=== PATIENT | male | born 1930 | race Native Hawaiian/Other Pacific Islander ===

== ENCOUNTER 2017-08-21 10:17 | Emergency (ER) | payer MEDICARE ==
[2017-08-21] MEDS ORDERED: Tetanus/Diphtheria Toxoids 0.5 ml Syringe IM ONE ×2 (11:02→11:12)
--- NOTE | 2017-08-21 11:24 | C.PDOC ---
History Of Present Illness 87 yr old male presents to the ER s/p slip and fall. Patient states he was on [place] way to [place] when he slipped on ice, hitting the back of his head. Patient reports of a laceration to the back of head, associated with mild headache to the area. Patient denies LOC, visual changes, nausea, vomiting, neck pain, dizziness, sensory changes, extremity weakness. Patient is not UTD on Tetanus. - HPI Time Seen by Provider: 08/21/17 10:46 Chief Complaint (Nursing): Trauma History Per: Patient History/Exam Limitations: no limitations Onset/Duration Of Symptoms: Sudden Onset ([employer]) Severity: Moderate Past Medical History Reviewed: Historical Data, Nursing Documentation, Vital Signs Vital Signs: Last Vital Signs Temp 97.9 F 08/21/17 12:31 Pulse 90 08/21/17 12:31 Resp 18 08/21/17 12:31 BP 110/64 08/21/17 12:31 Pulse Ox 99 08/27/17 15:00 - Medical History PMH: Hypercholesterolemia - [facility] Procedures CATARAC PHACOEMULS/ASPIR (06/21/13) INSERT LENS AT CATAR EXT (06/21/13) Family History: States: No Known Family Hx - Social History Hx Alcohol Use: No Hx Substance Use: No - Immunization History Hx Tetanus Toxoid Vaccination: No Hx Influenza Vaccination: No Hx Pneumococcal Vaccination: No Review Of Systems Except As Marked, All Systems Reviewed And Found Negative. Eyes: Negative for: Vision Change Gastrointestinal: Negative for: Nausea, Vomiting, Abdominal Pain Musculoskeletal: Negative for: Neck Pain Skin: Positive for: Other (Laceration to the back of head with mild headache to the area) Neurological: Positive for: Headache. Negative for: Weakness, Numbness, Dizziness Physical Exam - Physical Exam Appears: Well, Non-toxic, No Acute Distress Skin: Warm, Dry, No Rash Head: Normacephalic, Other ((+) two approx 1.5cm lacerations in paralelle oriantation - occipital scalp) Eye(s): bilateral: Normal Inspection, PERRL, EOMI Oral Mucosa: Moist Neck: Normal, Normal ROM, No Midline Cervical Tenderness, No Paracervical Tenderness, No Step Off Deformity, Supple Cardiovascular: Rhythm Regular Respiratory: Normal Breath Sounds, No Rales, No Rhonchi, No Wheezing Gastrointestinal/Abdominal: Normal Exam, Bowel Sounds, Soft, No Tenderness Back: Normal Inspection, No CVA Tenderness Extremity: Normal ROM, No Swelling Extremity: Bilateral: Atraumatic, Normal Color And Temperature, Normal ROM Neurological/Psych: Oriented x3, Normal Speech, Normal Cognition, Normal Cranial Nerves, No Cerebellar Signs, Normal Motor, Normal Sensation Gait: Steady ED Course And Treatment O2 Sat by Pulse Oximetry: 99 (RA) Pulse Ox Interpretation: Normal - CT Scan/US CT - Head Other Rad Studies (CT/US): Read By Radiologist, Radiology Report Reviewed CT/US Interpretation: PROCEDURE: CT HEAD WITHOUT CONTRAST. HISTORY: HEAD INJURY, R/O BLEED. COMPARISON: None available. TECHNIQUE: Axial computed tomography images were obtained through the head/brain without intravenous contrast. Radiation dose: Total exam DLP = 879.47 mGy-cm. This CT exam was performed using one or more of the following dose reduction techniques: Automated exposure control, adjustment of the mA and/or kV according to patient size, and/or use of iterative reconstruction technique. FINDINGS: HEMORRHAGE: No intracranial hemorrhage. BRAIN: No mass effect or edema. Mild atrophy and mild chronic microvascular white matter ischemic changes are noted. VENTRICLES: Unremarkable. No hydrocephalus. CALVARIUM: Unremarkable. PARANASAL SINUSES: Unremarkable as visualized. No significant inflammatory changes. MASTOID AIR CELLS: Unremarkable as visualized. No inflammatory changes. OTHER FINDINGS: Left occipital scalp soft tissue swelling noted. Atherosclerotic calcification noted at the distal vertebral arteries and the arteries at the [place]. IMPRESSION: No evidence of acute intracranial hemorrhage intracranial collection mass effect or midline shift. Progress Note: PLAN: CT Head ordered and reviewed. Patient given Tylenol PO & Tetanus IM. Reevaluation Time: 12:25 Reassessment Condition: Improved (ON reassessment, patient is resting comfortably and states he feels better. He is AAOx3, ambulating normally in ED. Patient discharged home with Rx for tylenol, instructed to follow up with PMD in 1-2 days. He understands he should return to ED if he has any concerning symptoms.) Laceration - Laceration Repair scalp Wound Length (In cm): 1.5 cm x 2 Description Of Wound: Linear Wound Cleansed With: Sterile Saline Wound Closure: Steri Strips, Skin Glue Wound Complexity: Simple Disposition Counseled Patient/Family Regarding: Studies Performed, Diagnosis, Need For Followup, Rx Given - Disposition Referrals: Monica Snyder MD [Medical Doctor] - Disposition: HOME/ ROUTINE Disposition Time: 12:25 Condition: STABLE Additional Instructions: FOLLOW UP WITH YOUR DOCTOR IN 1-2 DAYS USE MEDICATION DIRECTED RETURN TO ER IF YOU HAVE ANY CONCERNING SYMPTOMS Prescriptions: Acetaminophen [Tylenol 325mg tab] 650 mg PO Q6 PRN #30 tab PRN Reason: pain/fever Instructions: Laceration (ED), Head Injury (ED), Skin Adhesive Care (ED) Forms: [employer] ([place]) Print Language: [place] - POA Present On Arrival: Falls Or Trauma - Clinical Impression Clinical Impression: Closed head injury, Scalp laceration - Scribe Statement The provider has reviewed the documentation as recorded by the Yulisaibjorje Cardona Provider Attestation: All medical record entries made by the Yuliet were at my direction and personally dictated by me. I have reviewed the chart and agree that the record accurately reflects my personal performance of the history, physical exam, medical decision making, and the department course for this patient. I have also personally directed, reviewed, and agree with the discharge instructions and disposition.
--- NOTE | 2017-08-21 12:08 | CT ---
PROCEDURE: CT HEAD WITHOUT CONTRAST. HISTORY: HEAD INJURY, R/O BLEED COMPARISON: None available. TECHNIQUE: Axial computed tomography images were obtained through the head/brain without intravenous contrast. Radiation dose: Total exam DLP = 879.47 mGy-cm. This CT exam was performed using one or more of the following dose reduction techniques: Automated exposure control, adjustment of the mA and/or kV according to patient size, and/or use of iterative reconstruction technique. FINDINGS: HEMORRHAGE: No intracranial hemorrhage. BRAIN: No mass effect or edema. Mild atrophy and mild chronic microvascular white matter ischemic changes are noted. VENTRICLES: Unremarkable. No hydrocephalus. CALVARIUM: Unremarkable. PARANASAL SINUSES: Unremarkable as visualized. No significant inflammatory changes. MASTOID AIR CELLS: Unremarkable as visualized. No inflammatory changes. OTHER FINDINGS: Left occipital scalp soft tissue swelling noted. Atherosclerotic calcification noted at the distal vertebral arteries and the arteries at the [place]. IMPRESSION: No evidence of acute intracranial hemorrhage intracranial collection mass effect or midline shift.
[2017-08-21 12:32] VITALS: BP 110/64; PULSE 90; RESP 18; TEMP 97.9
[2017-08-27 14:06] VITALS: O2SAT 99
== END 2017-08-21 12:34 | disposition home or self-care (01) ==
LOC: C.ER 10:17
DX: S01.01XA Laceration without foreign body of scalp, initial encounter (principal); W00.0XXA Fall on same level due to ice and snow, initial encounter